=== PATIENT | male | born 1975 | race Hispanic/Latino ===

== ENCOUNTER 2019-07-04 06:39 | Emergency (ER) | payer BC, OTHER ==
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
[2019-07-04] MEDS ORDERED: Acetaminophen/HYDROcodone 325-7.5 MG Tab PO STA (08:03)
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
== END 2019-07-04 10:06 | disposition home or self-care (01) ==
LOC: MW.ED 06:39
DX: S32.402A Unspecified fracture of left acetabulum, initial encounter for closed fracture (principal); V47.6XXA Car passenger injured in collision with fixed or stationary object in traffic accident, initial encounter; Y92.410 Unspecified street and highway as the place of occurrence of the external cause
CPT/HCPCS: 73502; 73700; 81001; 99284; A9270